=== PATIENT | male | born 1940 | race Caucasian/White ===

== ENCOUNTER 2016-10-19 10:04 | Inpatient (IN) | payer OTHER ==
--- NOTE | 2016-10-19 10:48 | EDPHY ---
H & P Smoking Status: Never smoked Time Seen by Provider: 10/19/16 10:21 HPI/ROS: CHIEF COMPLAINT: Unable to urinate HISTORY OF PRESENT ILLNESS: 75-year-old male presents to the emergency department by private vehicle with his complaining of difficulty urinating. Patient was in [place] 1 week ago and developed hematuria. He was seen at urgent care and was started on antibiotics. He went back to urgent care because he was unable to urinate and then ultimately went to the emergency department in [place] and had a noncontrast CT scan which revealed a mass in his right kidney. The patient was to have further testing although because they were out of state they wanted come back to [place] further care. They saw their primary care doctor yesterday, Dr. Danny East, who recommended that he hold his Plavix. He is scheduled to see Dr. Carrion this afternoon. He denies dysuria, urgency or frequency. His only pain is associated with a flare-up of gout that he has in his right ankle which is not uncommon for him. He was to take prednisone for this. He denies flank pain or abdominal pain. Denies fevers or chills. Denies any reported trauma. Denies chest pain or difficulty breathing. REVIEW OF SYSTEMS: Constitutional: No fever, no chills. Eyes: No double or blurry vision. ENT: No sore throat. Respiratory: No cough, no shortness of breath. Cardiac: No chest pain. Gastrointestinal: No abdominal pain, vomiting or diarrhea. Genitourinary: Difficulty urinating. No dysuria. Musculoskeletal: No neck or back pain. Skin: No rashes. Neurological: No headache. (Amena Vidal) Past Medical/Surgical History: Gout, diagnosed with right kidney mass September 2016 (Amena Vidal) Social History: (Amena Vidal) Physical Exam: General Appearance: Alert, no distress. 133/80, heart rate 83, 97% on room air. Afebrile. at bedside. Eyes: Pupils equal and round. Extraocular motions are all intact. ENT: Mouth: Mucous membranes moist. Respiratory: No wheezing, rhonchi, or rales, lungs are clear to auscultation. Cardiovascular: Regular rate and rhythm. Gastrointestinal: Abdomen is soft and nontender, no masses, no rebound or guarding, bowel sounds normal. No CVA tenderness bilaterally. Neurological: Alert and oriented x 3, cranial nerves II through XII grossly intact Skin: Warm and dry, no rashes. Musculoskeletal: Nontender to palpate along the cervical, thoracic or lumbar spine. Neck is supple. Extremities: Full range of motion. Right ankle is slightly swollen and with mild erythema to the lateral aspect of the right ankle. Normal sensation to light touch with normal 2 point discrimination. Psychiatric: Patient is oriented X 3, there is no agitation. (Amena Vidal) Constitutional: Initial Vital Signs Temperature (C) 36.7 C 10/19/16 10:05 Heart Rate 83 10/19/16 10:05 Respiratory Rate 18 10/19/16 10:05 Blood Pressure 133/80 H 10/19/16 10:05 O2 Sat (%) 97 10/19/16 10:05 O2 Delivery Mode Room Air Allergies/Adverse Reactions: No Known Allergies Allergy (Unverified 10/19/16 10:10) Home Medications: Medication Instructions Recorded Acetaminophen [Tylenol ES 500 mg 1,000 mg PO Q6 PRN 10/19/16 (*)] Atorvastatin Calcium [Atorvastatin 40 mg PO HS 10/19/16 Calcium] Ciprofloxacin [Cipro] 500 mg PO BID 10/19/16 Citric Acid/Sodium Citrate [Sod 15 ml PO DAILY 10/19/16 Citrate-Citric Acid Soln] Clopidogrel Bisulfate [Clopidogrel] 75 mg PO DAILY 10/19/16 Glimepiride [Glimepiride] 6 mg PO BIDPC 10/19/16 Levothyroxine Sodium 88 mcg PO DAILY 10/19/16 [Levothyroxine Sodium] Lisinopril [Lisinopril] 10 mg PO DAILY 10/19/16 Multivitamins [Multivitamin (*)] 1 each PO DAILY 10/19/16 oxyCODONE HCL [Oxycodone HCl] 5 mg PO Q4 PRN 10/19/16 sitaGLIPtin PHOSPHATE [Januvia 25 50 mg PO DAILY 10/19/16 MG (*)] Medical Decision Making ED Course/Re-evaluation: 75-year-old male presents to the emergency department with hematuria and urinary retention. Creatinine is 1.9. BUN 30. Bladder scan was performed which revealed only about 300 mL of urine. The patient has urge to urinate and therefore catheter was placed. A 3 way catheter was not available in the emergency department therefore a single Boone catheter was placed for comfort. The catheter drained about 300 mL of urine that appear bloody. I spoke with Dr. Carrion who recommended that the patient be admitted to the hospitalist and consulted for nephrectomy. The case was discussed with Dr. Rivera Thorpe, secondary supervising physician, who did not directly evaluate the patient but agrees with treatment and plan. After multiple attempts and pages to the on-call urologist, Dr. Morgan Mcgrath, I was finally able to speak with Dr. Mcgrath at 12:[address] Mcgrath recommended changing the Boone catheter to 3 way catheter so it could be irrigated. He also recommended obtaining MRI with contrast. He felt that this was safe with his creatinine 1.9. Patient will be admitted to Dr. Riggs, hospitalist. (Amena Vidal) I did not see this patient while he was in the emergency department. However his care was discussed with the PA while the patient was in the department. I agree with treatment plan and management (Rivera Thorpe) Differential Diagnosis: Including but not limited to carcinoma, renal failure, renal insufficiency, urinary tract infection, pyelonephritis, kidney stone (Amena Vidal) - Data Points Laboratory Results: Laboratory Results 10/19/16 10:55 10/19/16 10:55 10/19/16 10/19/16 10/19/16 11:03 10:55 10:55 WBC RBC Hgb POC Hgb 10.9 gm/dL L gm/dL (14.5-17.3) Hct POC Hct 32 % L % (42.8-50.6) MCV MCH MCHC RDW Plt Count MPV Neut % (Auto) Lymph % (Auto) [place] % (Auto) Eos % (Auto) Baso % (Auto) Nucleat RBC Rel Count Absolute Neuts (auto) Absolute Lymphs (auto) Absolute Monos (auto) Absolute Eos (auto) Absolute Basos (auto) Absolute Nucleated RBC Immature Gran % Immature Gran # PT INR APTT POC Sodium 136 mEq/L mEq/L (134-144) Sodium 133 mEq/L L mEq/L (134-144) POC Potassium 4.0 mEq/L mEq/L (3.3-5.0) Potassium 4.2 mEq/L mEq/L (3.5-5.2) POC Chloride 102 mEq/L mEq/L (96-108) Chloride 103 mEq/L mEq/L (97-110) Carbon Dioxide 19 mEq/l L mEq/l (22-31) Anion Gap 11 mEq/L mEq/L (8-16) POC BUN 30 mg/dL H mg/dL (7-23) BUN 35 mg/dL H mg/dL (7-23) Creatinine 1.9 mg/dL H mg/dL (0.7-1.3) POC Creatinine 1.9 mg/dL H mg/dL (0.8-1.5) Estimated GFR 35 Glucose 234 mg/dL H mg/dL (70-100) POC Glucose 235 mg/dL H mg/dL (70-100) Calcium 8.4 mg/dL L mg/dL (8.5-10.4) Total Bilirubin 0.8 mg/dL mg/dL (0.1-1.4) Conjugated Bilirubin 0.3 mg/dL mg/dL (0.0-0.5) Unconjugated Bilirubin 0.5 mg/dL mg/dL (0.0-1.1) AST 25 IU/L IU/L (17-59) ALT 34 IU/L IU/L (21-72) Alkaline Phosphatase 60 IU/L IU/L (38-126) Total Protein 5.8 g/dL L g/dL (6.3-8.2) Albumin 3.6 g/dL g/dL (3.5-5.0) 10/19/16 10/19/16 10:55 10:55 WBC 10.62 10^3/uL H 10^3/uL (3.80-9.50) RBC 3.53 10^6/uL L 10^6/uL (4.40-6.38) Hgb 11.5 g/dL L g/dL (13.7-17.5) POC Hgb Hct 33.0 % L % (40.0-51.0) POC Hct MCV 93.5 fL fL (81.5-99.8) MCH 32.6 pg pg (27.9-34.1) MCHC 34.8 g/dL g/dL (32.4-36.7) RDW 13.2 % % (11.5-15.2) Plt Count 199 10^3/uL 10^3/uL (150-400) MPV 10.9 fL fL (8.7-11.7) Neut % (Auto) 81.2 % H % (39.3-74.2) Lymph % (Auto) 8.4 % L % (15.0-45.0) [place] % (Auto) 8.7 % % (4.5-13.0) Eos % (Auto) 1.0 % % (0.6-7.6) Baso % (Auto) 0.3 % % (0.3-1.7) Nucleat RBC Rel Count 0.0 % % (0.0-0.2) Absolute Neuts (auto) 8.63 10^3/uL H 10^3/uL (1.70-6.50) Absolute Lymphs (auto) 0.89 10^3/uL L 10^3/uL (1.00-3.00) Absolute Monos (auto) 0.92 10^3/uL H 10^3/uL (0.30-0.80) Absolute Eos (auto) 0.11 10^3/uL 10^3/uL (0.03-0.40) Absolute Basos (auto) 0.03 10^3/uL 10^3/uL (0.02-0.10) Absolute Nucleated RBC 0.00 10^3/uL 10^3/uL (0-0.01) Immature Gran % 0.4 % % (0.0-1.1) Immature Gran # 0.04 10^3/uL 10^3/uL (0.00-0.10) PT 14.6 SEC SEC (12.0-15.0) INR 1.15 (0.83-1.16) APTT 26.2 SEC SEC (23.0-38.0) POC Sodium Sodium POC Potassium Potassium POC Chloride Chloride Carbon Dioxide Anion Gap POC BUN BUN Creatinine POC Creatinine Estimated GFR Glucose POC Glucose Calcium Total Bilirubin Conjugated Bilirubin Unconjugated Bilirubin AST ALT Alkaline Phosphatase Total Protein Albumin Medications Given: Discontinued Medications Hydromorphone HCl (Dilaudid) 1 mg IVP EDNOW ONE Stop: 10/19/16 14:13 Last Admin: 10/19/16 14:25 Dose: 1 mg Sodium Chloride (Ns) 1,000 mls @ 0 mls/hr IV ONCE ONE PRN Reason: Wide Open Stop: 10/19/16 11:50 Last Admin: 10/19/16 11:49 Dose: 1,000 mls Sodium Chloride (Ns) 1,000 mls @ 0 mls/hr IV ONCE ONE PRN Reason: Wide Open Stop: 10/19/16 14:27 Last Admin: 10/19/16 14:29 Dose: 1,000 mls Lidocaine (Uroject Lidocaine 2% Jelly) 20 ml UR EDNOW ONE Stop: 10/19/16 11:50 Last Admin: 10/19/16 11:35 Dose: 20 ml Ondansetron HCl (Zofran) 4 mg IVP EDNOW ONE Stop: 10/19/16 14:12 Last Admin: 10/19/16 14:15 Dose: 4 mg Point of Care Test Results: 10/19/16 11:03 POC Sodium 136 POC Potassium 4.0 POC Chloride 102 POC BUN 30 H POC Creatinine 1.9 H POC Glucose 235 H Departure - Departure Disposition: [facility] Acute Clinical Impression: Hematuria, Renal mass, Urinary retention Condition: Good
[2016-10-19 11:07] LABS: % IMMATURE GRANULYOCYTES 0.4 % (0.0-1.1); ABSOLUTE IMMATURE GRANULOCYTES 0.04 10^3/uL (0.00-0.10); ADD DIFF? NO; ADD MORPH? NO; ADD SCAN? NO; ATYPICAL LYMPHOCYTE FLAG 10 (0-99); FRAGMENT RBC FLAG 0 (0-99); HEMOGLOBIN 11.5 g/dL (13.7-17.5); LEFT SHIFT FLG 0 (0-99); LIPEMIA HEMOLYSIS FLAG 90 (0-99); MEAN CELL HEMOGLOBIN 32.6 pg (27.9-34.1); MEAN CELL HEMOGLOBIN CONCENTR. 34.8 g/dL (32.4-36.7); MEAN CELL VOLUME 93.5 fL (81.5-99.8); MEAN PLATELET VOLUME 10.9 fL (8.7-11.7); PLATELET CLUMPS FLAG 0 (0-99); PLATELET COUNT 199 10^3/uL (150-400); RED BLOOD CELL COUNT 3.53 10^6/uL (4.40-6.38); RED CELL DISTRIBUTION WIDTH 13.2 % (11.5-15.2)
[2016-10-19 11:17] LABS: INR 1.15 (0.83-1.16); PROTIME(PATIENT) 14.6 SEC (12.0-15.0)
[2016-10-19 11:18] LABS: APTT 26.2 SEC (23.0-38.0)
[2016-10-19] MEDS ORDERED: LIDOCAINE 2% JELLY 20 ML (UROJECT) ONE (11:18)
[2016-10-19 11:24] LABS: ANION GAP 11 mEq/L (8-16); CALCIUM 8.4 mg/dL (8.5-10.4); CARBON DIOXIDE 19 mEq/l (22-31); CHLORIDE 103 mEq/L (97-110); CREATININE 1.9 mg/dL (0.7-1.3); GLOMERULAR FILTRATION RATE 35; GLUCOSE 234 mg/dL (70-100); POTASSIUM 4.2 mEq/L (3.5-5.2); SODIUM 133 mEq/L (134-144)
[2016-10-19 11:29] LABS: ALBUMIN 3.6 g/dL (3.5-5.0); BILIRUBIN,TOTAL 0.8 mg/dL (0.1-1.4); BILIRUBIN-CONJUGATED 0.3 mg/dL (0.0-0.5); BILIRUBIN-UNCONJUGATED 0.5 mg/dL (0.0-1.1); TOTAL PROTEIN 5.8 g/dL (6.3-8.2)
[2016-10-19] MEDS ORDERED: LIDOCAINE 2% JELLY 20 ML (UROJECT) UR ONE (11:49)
[2016-10-19] MEDS ORDERED: NS 1,000 ML IV ONE ×2 (11:49→14:26)
[2016-10-19] MEDS ORDERED: ONDANSETRON 4 MG/2 ML VIAL IVP ONE (14:11)
[2016-10-19] MEDS ORDERED: HYDROmorphONE/DILAUDID 1 MG/ML SYR IVP ONE (14:12)
[2016-10-19 15:38] LABS: COLOR AMBER; LEUKOCYTE ESTERASE,URINE NEGATIVE (NEGATIVE); NITRITE,URINE NEGATIVE (NEGATIVE)
[2016-10-19 15:50] LABS: MUCUS TRACE /lpf (NONE-1+); RBC,URINE 50-182 /hpf (0-3)
[2016-10-19] MEDS ORDERED: ONDANSETRON 4 MG/2 ML VIAL IVP PRN (16:44)
[2016-10-19] MEDS ORDERED: ONDANSETRON DISINTEGRATING 4 MG TAB PO PRN (16:44)
[2016-10-19] MEDS ORDERED: ACETAMINOPHEN 650 MG SUPP PR PRN (16:44)
[2016-10-19] MEDS ORDERED: NS 1,000 ML IV SCH (16:45)
--- NOTE | 2016-10-19 16:54 | PDGENHP ---
History and Physical - Chief Complaint urinary retention, hematuria - History of Present Illness This is a 75 yo male who was visiting [place] last week and had hematuria and urinary retention and was hospitalized there. The hematuria and retention improved. CT Abd was c/w a right renal mass of unclear etiology but suspicious for malignancy. The patient had recurrence of the Hematuria with worsening retention and the ultimately led him to seek emergency care today. The patients is a patient of Dr. Carrion and arrangements had been made for the patient to follow up with Dr. Carrion for further management and evaluation of the right renal mass. In the ED, a irrigation bills was placed and he is receiving bladder irrigation. The patient was found to have CONNER with an elevated cr. An MRI of the abd and pelvis has been ordered by Urology and this is pending. He denies any CP, SOB, N/V, palpitations, leg edema, abd pain, or other. He held plavix 2 days ago. PMHX: DMII hx of stroke HLD HYPOTHYROIDISM GOUT HEMATURIA SOC HX: NO TOBACCO, ETOH OR DRUG USE. LIVES IN [place] FMHX: NO HX OF RENAL MALIGNANCY MEDS/ALL: SEE MED REC History Information - Allergies/Home Medication List Allergies/Adverse Reactions: No Known Allergies Allergy (Unverified 10/19/16 10:10) Home Medications: Acetaminophen [Tylenol ES 500 mg (*)] 1,000 mg PO Q6 PRN 10/19/16 [Last Taken ] Atorvastatin Calcium [Atorvastatin Calcium] 40 mg PO HS 10/19/16 [Last Taken ] Ciprofloxacin [Cipro] 500 mg PO BID 10/19/16 [Last Taken 10/18/16] Citric Acid/Sodium Citrate [Sod Citrate-Citric Acid Soln] 15 ml PO DAILY [Last Taken 10/14/16] Clopidogrel Bisulfate [Clopidogrel] 75 mg PO DAILY 10/19/16 [Last Taken 10/18/16 ] Glimepiride [Glimepiride] 6 mg PO BIDPC 10/19/16 [Last Taken Unknown] Levothyroxine Sodium [Levothyroxine Sodium] 88 mcg PO DAILY 10/19/16 [Last Taken 10/19/16] Lisinopril [Lisinopril] 10 mg PO DAILY 10/19/16 [Last Taken 10/19/16] Multivitamins [Multivitamin (*)] 1 each PO DAILY 10/19/16 [Last Taken Unknown] oxyCODONE HCL [Oxycodone HCl] 5 mg PO Q4 PRN 10/19/16 [Last Taken 10/14/16] sitaGLIPtin PHOSPHATE [Januvia 25 MG (*)] 50 mg PO DAILY 10/19/16 [Last Taken ] I have personally reviewed and updated: medical history, social history - Social History Smoking Status: Never smoked Review of Systems ROS: 10pt was reviewed & negative except for what was stated in HPI & below Physical Exam Temp Pulse Resp BP Pulse Ox 36.7 C 97 16 136/73 H 97 10/19/16 15:00 10/19/16 15:00 10/19/16 15:00 10/19/16 15:00 10/19/16 15:00 Constitutional: no apparent distress, appears nourished, No chronically ill appearing Eyes: PERRL, EOMI Ears, Nose, Mouth, Throat: moist mucous membranes, hearing normal Cardiovascular: regular rate and rhythym, no murmur, rub, or gallop, No JVD Respiratory: no respiratory distress, no rales or rhonchi, clear to auscultation Gastrointestinal: normoactive bowel sounds, soft, non-tender abdomen Genitourinary: no bladder fullness Skin: warm, normal color Musculoskeletal: No generalized weakness Neurologic: AAOx3, No weakness, No facial droop Psychiatric: interacting appropriately, not anxious, not encephalopathic Lab Data & Imaging Review 10/19/16 10:55 10/19/16 10:55 WBC 10.62 10^3/uL (3.80-9.50) H 10/19/16 10:55 RBC 3.53 10^6/uL (4.40-6.38) L 10/19/16 10:55 Hgb 11.5 g/dL (13.7-17.5) L 10/19/16 10:55 POC Hgb 10.9 gm/dL (14.5-17.3) L 10/19/16 11:03 Hct 33.0 % (40.0-51.0) L 10/19/16 10:55 POC Hct 32 % (42.8-50.6) L 10/19/16 11:03 MCV 93.5 fL (81.5-99.8) 10/19/16 10:55 MCH 32.6 pg (27.9-34.1) 10/19/16 10:55 MCHC 34.8 g/dL (32.4-36.7) 10/19/16 10:55 RDW 13.2 % (11.5-15.2) 10/19/16 10:55 Plt Count 199 10^3/uL (150-400) 10/19/16 10:55 MPV 10.9 fL (8.7-11.7) 10/19/16 10:55 Neut % (Auto) 81.2 % (39.3-74.2) H 10/19/16 10:55 Lymph % (Auto) 8.4 % (15.0-45.0) L 10/19/16 10:55 [place] % (Auto) 8.7 % (4.5-13.0) 10/19/16 10:55 Eos % (Auto) 1.0 % (0.6-7.6) 10/19/16 10:55 Baso % (Auto) 0.3 % (0.3-1.7) 10/19/16 10:55 Nucleat RBC Rel Count 0.0 % (0.0-0.2) 10/19/16 10:55 Absolute Neuts (auto) 8.63 10^3/uL (1.70-6.50) H 10/19/16 10:55 Absolute Lymphs (auto) 0.89 10^3/uL (1.00-3.00) L 10/19/16 10:55 Absolute Monos (auto) 0.92 10^3/uL (0.30-0.80) H 10/19/16 10:55 Absolute Eos (auto) 0.11 10^3/uL (0.03-0.40) 10/19/16 10:55 Absolute Basos (auto) 0.03 10^3/uL (0.02-0.10) 10/19/16 10:55 Absolute Nucleated RBC 0.00 10^3/uL (0-0.01) 10/19/16 10:55 Immature Gran % 0.4 % (0.0-1.1) 10/19/16 10:55 Immature Gran # 0.04 10^3/uL (0.00-0.10) 10/19/16 10:55 PT 14.6 SEC (12.0-15.0) 10/19/16 10:55 INR 1.15 (0.83-1.16) 10/19/16 10:55 APTT 26.2 SEC (23.0-38.0) 10/19/16 10:55 POC Sodium 136 mEq/L (134-144) 10/19/16 11:03 Sodium 133 mEq/L (134-144) L 10/19/16 10:55 POC Potassium 4.0 mEq/L (3.3-5.0) 10/19/16 11:03 Potassium 4.2 mEq/L (3.5-5.2) 10/19/16 10:55 POC Chloride 102 mEq/L (96-108) 10/19/16 11:03 Chloride 103 mEq/L (97-110) 10/19/16 10:55 Carbon Dioxide 19 mEq/l (22-31) L 10/19/16 10:55 Anion Gap 11 mEq/L (8-16) 10/19/16 10:55 POC BUN 30 mg/dL (7-23) H 10/19/16 11:03 BUN 35 mg/dL (7-23) H 10/19/16 10:55 Creatinine 1.9 mg/dL (0.7-1.3) H 10/19/16 10:55 POC Creatinine 1.9 mg/dL (0.8-1.5) H 10/19/16 11:03 Estimated GFR 35 10/19/16 10:55 Glucose 234 mg/dL (70-100) H 10/19/16 10:55 POC Glucose 235 mg/dL (70-100) H 10/19/16 11:03 Calcium 8.4 mg/dL (8.5-10.4) L 10/19/16 10:55 Total Bilirubin 0.8 mg/dL (0.1-1.4) 10/19/16 10:55 Conjugated Bilirubin 0.3 mg/dL (0.0-0.5) 10/19/16 10:55 Unconjugated Bilirubin 0.5 mg/dL (0.0-1.1) 10/19/16 10:55 AST 25 IU/L (17-59) 10/19/16 10:55 ALT 34 IU/L (21-72) 10/19/16 10:55 Alkaline Phosphatase 60 IU/L (38-126) 10/19/16 10:55 Total Protein 5.8 g/dL (6.3-8.2) L 10/19/16 10:55 Albumin 3.6 g/dL (3.5-5.0) 10/19/16 10:55 Urine Color KELLI 10/19/16 Unknown Urine Appearance MODERATELY TURBID 10/19/16 Unknown Urine pH 6.0 (5.0-7.5) 10/19/16 Unknown Ur Specific [place] 1.010 (1.002-1.030) 10/19/16 Unknown Urine Protein 2+ (NEGATIVE) H 10/19/16 Unknown Urine Ketones NEGATIVE (NEGATIVE) 10/19/16 Unknown Urine Blood 3+ (NEGATIVE) H 10/19/16 Unknown Urine Nitrate NEGATIVE (NEGATIVE) 10/19/16 Unknown Urine Bilirubin NEGATIVE (NEGATIVE) 10/19/16 Unknown Urine Urobilinogen NEGATIVE EU (0.2-1.0) 10/19/16 Unknown Ur Leukocyte Esterase NEGATIVE (NEGATIVE) 10/19/16 Unknown Urine RBC 50-182 /hpf (0-3) H 10/19/16 Unknown Urine WBC 1-3 /hpf (0-3) 10/19/16 Unknown Ur Epithelial Cells TRACE /lpf (NONE-1+) 10/19/16 Unknown Urine Mucus TRACE /lpf (NONE-1+) 10/19/16 Unknown Urine Glucose 1+ (NEGATIVE) H 10/19/16 Unknown Assessment & Plan Assessment: Hematuria (Acute) Renal mass (Acute) Urinary retention (Acute) Plan: #urinary retention, hematuria. -cont bladder irrigation -Urology to see -Hold Plavix #Right renal mass of unclear Etiology -MRI abd/pelvis pending -Urology -Oncology #Acute Renal failure -likely postobstructive -cont bills -will check urine studies -provide additional IVF today #DMII and Hyperglycemia -hold oral meds -start ISS #HTN: -hold Lisinopril #Recent UTI, s/p Cipro #Hx of Stroke -Holding Plavix Dispo/Plan: -admit observation -await MRI -continue home meds as appropriate -SDS's -Full code total care time spent on admission is 1 hour
[2016-10-19] MEDS ORDERED: D50W 25 GM/50 ML SYR IVP PRN (17:00)
[2016-10-19] MEDS: INSULIN LISPRO 100 UNIT/ML SC SCH (17:36)
[2016-10-19] MEDS: oxyCODONE IR 5 MG TAB PO PRN ×2 (17:39→21:39)
--- NOTE | 2016-10-19 19:53 | SOAPPROG ---
SOAP Progress Note Assessment/Plan: Assessment: 1. Gross hematuria w/ clot retention. 2. Possible right renal mass. 3. h/o prostate cancer. Plan: 1. Continue CBI. 2. Hydrate vigorously. 3. MRI tomorrow to further assess for right renal mass. See full dictated consult note (# [id number]). Objective: Vital Signs Temp Pulse Resp BP Pulse Ox 36.4 C 92 16 93/50 L 90 L 10/19/16 19:24 10/19/16 19:24 10/19/16 19:24 10/19/16 19:24 10/19/16 19:24 10/18/16 10/19/16 10/20/16 05:59 05:59 05:59 Intake Total 2550 Output Total 4200 Balance -1650 PT 14.6 SEC (12.0-15.0) 10/19/16 10:55 INR 1.15 (0.83-1.16) 10/19/16 10:55 ICD10 Worksheet Patient Problems: Problems Problem Status Onset Hematuria Acute Renal mass Acute Urinary retention Acute
[2016-10-19] MEDS: ATORVASTATIN CALCIUM 40 MG TAB PO SCH (20:12)
--- NOTE | 2016-10-19 20:30 | GCON ---
[f rep st] CONSULTATION UROLOGY CONSULTATION. REASON FOR CONSULTATION: Gross hematuria, possible right renal mass. HISTORY: This is a 75-year-old gentleman, who started experiencing gross hematuria about 9 days ago . The hematuria was occasionally bright to dark red in color. It occurred throughout the voiding s tream. He presented to an urgent care clinic within 48 hours of hematuria onset and was in [place], [place] at that time. Apparently no abnormalities were identified and no evidence of infection was detected. The patient was then discharged. However, the hematuria recurred and was associated with a clot retention. As a result, he presented to an emergency room in the [facility]. A noncontrast CT scan was performed at that time which revealed a possible right renal mass. T he patient was admitted for observation but received no other significant management at that time, p er his recollection. The bleeding eventually stopped and the patient was deemed ready for discharge from the [facility] on last week. He then flew home last Tuesday and was doing wel l until he developed the recurrence of gross hematuria with clot retention yesterday evening. He pr esented to the emergency room earlier today as a result. He was admitted for further care thereafte r, including continuous bladder irrigation. The patient states he had some transient nausea with in itial onset of clot retention 1 week ago, along with some very transient mild, dull right lower quad rant abdominal pain. Both the nausea and the pain have long since resolved. He denies any associat ed fevers, flu-like symptoms, flank pain, dysuria, or changes in his otherwise normal voiding patter n. He does state that he had 1 solitary episode of bright red gross painless hematuria approximatel y 2 months ago but did not receive any evaluation for it at that time. PAST MEDICAL HISTORY: In addition to noted gross hematuria above and possible right renal mass, sig nificant for type 2 diabetes, gout, history of prostate cancer, hypothyroidism, history of possible left partial retinal occlusion approximately 5 years ago. PAST SURGICAL HISTORY: Prostate brachytherapy approximately 10 years ago. ADMISSION MEDICATIONS: Cipro 500 mg b.i.d. (started for possible UTI), atorvastatin 40 mg daily, ox ycodone 5 mg p.r.n. pain, lisinopril 10 mg daily, levothyroxine 88 mcg daily, glimepiride 6 mg b.i.d ., Auguvia 50 mg daily, Plavix 75 mg daily. MEDICAL ALLERGIES: None known. FAMILY HISTORY: Positive for prostate cancer in his brother and kidney stones in his father and bro ther. SOCIAL HISTORY: The patient is to [place] and lives in the [place] area. He denies use of to bacco products and consumes alcohol minimally. He also denies use of illicit drugs. He and his wif e were vacationing in [place], [place] last week when his symptoms presented. REVIEW OF SYSTEMS: He has had some recent right ankle and foot swelling related to gout outbreak fo r which he was started on prednisone by Dr. East yesterday. Otherwise, negative, other than menti oned above in the HPI and past medical history. PHYSICAL EXAM: GENERAL: Pleasant, well-developed, well-nourished white male, lying supine in bed, in no acute distress. He does experience occasional mild bladder spasms that are very transient. V ITAL SIGNS: Blood pressure 93/50, pulse 92, respirations 16, oxygen saturation 90% on 1 L nasal can nula. Temperature 36.4 Celsius. HEENT: Normocephalic, atraumatic. NECK: Supple. HEART: Regula r rate. CHEST: Unlabored respiratory pattern. ABDOMEN: Soft without palpable masses. No obvious organomegaly. No flank tenderness on percussion. GENITALIA: Circumcised phallus with normal uret hral meatus in proper position. Boone catheter in place. Currently draining slightly blood-tinged urine on continuous irrigation. Scrotal structures are normal. EXTREMITIES: Warm, with some swell ing of the right ankle and foot as result of his recent gout attack. Otherwise unremarkable. No ca lf tenderness. VASCULAR: Normal femoral, dorsalis pedis, and posterior tibial pulses bilaterally. NEUROLOGIC: He is alert and oriented. He answers all questions appropriately with normal mood and affect. LYMPHATICS: No cervical or inguinal adenopathy appreciated. LABORATORY: Chemistry panel from this morning reveals creatinine 1.9, normal electrolytes otherwise . Liver function tests are normal. Glucose is elevated at 125 this afternoon, compared to 235 at 1 1:00 a.m. Coagulation parameters today are normal. CBC today is notable for hemoglobin 11.5, hemat ocrit 33.0. Urinalysis notable for 50-182 red blood cells per high-power field but otherwise unrema rkable. From review of the patient's prior hospital records, it appears that his baseline creatinin e is approximately 1.5 from April 2016. RADIOGRAPHIC STUDIES: None performed here to this point. However, noncontrast CT scan report from 10/13 in [place] indicates the presence of a possible 5 cm right renal mass with some mixed densities in the renal collecting system and proximal ureter, suggestive for a blood clot. No stones were id entified. IMPRESSION: 1. Recurrent gross hematuria with clot urinary retention. 2. Possible small 5 cm right renal mass with secondary hematuria. 3. History of prostate cancer. 4. Acute on chronic renal disease. I had an extended discussion with the patient, his and son this evening regarding his recent cl inical history and the CT scan report provided from [place]. Differential diagnosis for these findi ngs, as well as his gross hematuria and clot retention, were reviewed in detail today. All question s were answered to their apparent satisfaction. PLAN: 1. Maintain continuous bladder irrigation for the present time. The most likely source for his hem aturia is the right renal mass although other etiologies will need to be ruled out. 2. I agree with holding of Plavix which was just started yesterday upon Dr. East's recommendation . Considering the half-life of Plavix, he will still be at increased risk for recurrent urinary tra ct bleeding for at least the next 7 days while the Plavix clears. 3. Repeat lab work in the morning. 4. Proceed with abdominal MRI with and without contrast tomorrow to further delineate the extent of a right renal mass. I believe this will be safer in terms of his elevated creatinine in comparison to CT related IV contrast dye. I will continue to follow. Thank you for this consultation. /[id number]/MODL
[2016-10-19] MEDS: NS 1,000 ML IV SCH (21:39)
[2016-10-20] MEDS: NS 1,000 ML IV SCH ×3 (02:44→23:59)
[2016-10-20] MEDS: LEVOTHYROXINE 88 MCG TAB PO SCH (05:58)
[2016-10-20 06:36] LABS: % IMMATURE GRANULYOCYTES 0.4 % (0.0-1.1); ABSOLUTE IMMATURE GRANULOCYTES 0.04 10^3/uL (0.00-0.10); ADD DIFF? NO; ADD MORPH? NO; ADD SCAN? NO; ATYPICAL LYMPHOCYTE FLAG 10 (0-99); FRAGMENT RBC FLAG 0 (0-99); HEMATOCRIT 30.9 % (40.0-51.0); HEMOGLOBIN 10.7 g/dL (13.7-17.5); LEFT SHIFT FLG 0 (0-99); LIPEMIA HEMOLYSIS FLAG 90 (0-99); MEAN CELL HEMOGLOBIN 32.6 pg (27.9-34.1); MEAN CELL HEMOGLOBIN CONCENTR. 34.6 g/dL (32.4-36.7); MEAN CELL VOLUME 94.2 fL (81.5-99.8); PLATELET CLUMPS FLAG 0 (0-99); PLATELET COUNT 184 10^3/uL (150-400); RED BLOOD CELL COUNT 3.28 10^6/uL (4.40-6.38); RED CELL DISTRIBUTION WIDTH 13.3 % (11.5-15.2)
[2016-10-20 07:02] LABS: ANION GAP 10 mEq/L (8-16); CALCIUM 7.7 mg/dL (8.5-10.4); CARBON DIOXIDE 19 mEq/l (22-31); CHLORIDE 109 mEq/L (97-110); CREATININE 1.7 mg/dL (0.7-1.3); GLOMERULAR FILTRATION RATE 39; GLUCOSE 175 mg/dL (70-100); MAGNESIUM 1.9 mg/dL (1.6-2.3); SODIUM 138 mEq/L (134-144)
[2016-10-20 07:18] LABS: POTASSIUM 4.5 mEq/L (3.5-5.2)
[2016-10-20] MEDS: INSULIN LISPRO 100 UNIT/ML SC SCH ×3 (07:53→19:12)
[2016-10-20] MEDS: ACETAMINOPHEN 325 MG TAB PO PRN ×3 (08:09→21:27)
[2016-10-20 09:56] LABS: HEMOGLOBIN A1C 7.4 % (4.0-6.0)
--- NOTE | 2016-10-20 15:47 | HOSPPROG ---
Hospitalist Progress Note Assessment/Plan: #urinary retention, hematuria. -Etiology is unclear. Possibly from Right renal mass -Off bladder irrigation. Has not urinated as of 1529. Will continue to monitor but may need bills -Urology is following -Holding Plavix #Right renal mass of unclear Etiology -MRI abd/pelvis pending -Urology following #Acute Renal failure -likely postobstructive, urine studies are not back yet. Will need to be followed. -May require re-insertion of bills per above -provide additional IVF today. Tolerating IVF well, no signs of volume overload #DMII and Hyperglycemia -hold oral meds -start ISS -glucose overall with good control here -A1C: 7.4 #HTN: -hold Lisinopril #Recent UTI, s/p Cipro #Hx of Stroke vs retinal occlusion -Holding Plavix -SDS's -Full code Dispo: Monitor overnight. Await MRI. Subjective: Bills is out. No urine output as of yet. Objective: Vital Signs Temp Pulse Resp BP Pulse Ox 36.8 C 82 16 118/63 92 10/20/16 15:41 10/20/16 15:41 10/20/16 15:41 10/20/16 15:41 10/20/16 15:41 Laboratory Results 10/20/16 05:08 10/20/16 05:08 10/19/16 10/20/16 10/21/16 05:59 05:59 05:59 Intake Total 4410 Output Total 4200 4025 Balance 210 -4025 PT 14.6 SEC (12.0-15.0) 10/19/16 10:55 INR 1.15 (0.83-1.16) 10/19/16 10:55 - Physical Exam Constitutional: no apparent distress, appears nourished, not in pain Eyes: PERRL, anicteric sclera, EOMI Ears, Nose, Mouth, Throat: moist mucous membranes, hearing normal, ears appear normal Cardiovascular: regular rate and rhythym, No JVD Respiratory: no respiratory distress, no rales or rhonchi, clear to auscultation Gastrointestinal: normoactive bowel sounds, soft, non-tender abdomen Skin: warm, normal color Neurologic: AAOx3 Psychiatric: interacting appropriately, not anxious, not encephalopathic ICD10 Worksheet Patient Problems: Problems Problem Status Onset Hematuria Acute Renal mass Acute Urinary retention Acute
[2016-10-20] MEDS ORDERED: GADOBUTROL 10 ML VIAL IVP ONE (16:45)
[2016-10-20] MEDS: ATORVASTATIN CALCIUM 40 MG TAB PO SCH (19:57)
--- NOTE | 2016-10-20 21:54 | SOAPPROG ---
SOAP Progress Note Assessment/Plan: Assessment: 1. Gross hematuria w/ clot retention: improved. Voiding since Boone removal. 2. Possible right renal mass. 3. h/o prostate cancer. Plan: 1. Continue to hydrate vigorously in light of today's MRI contrast administration. 2. MRI completed this evening to further assess for right renal mass. Will review results w/ pt. on . 3. I presume he should be ready for discharge after MRI review on . Subjective: Pt. not seen. Objective: Vital Signs Temp Pulse Resp BP Pulse Ox 36.8 C 97 18 138/81 H 97 10/20/16 19:54 10/20/16 20:07 10/20/16 20:07 10/20/16 20:07 10/20/16 20:07 10/19/16 10/20/16 10/21/16 05:59 05:59 05:59 Intake Total 2000 Output Total 200 Balance 1800 PT 14.6 SEC (12.0-15.0) 10/19/16 10:55 INR 1.15 (0.83-1.16) 10/19/16 10:55 ICD10 Worksheet Patient Problems: Problems Problem Status Onset Hematuria Acute Renal mass Acute Urinary retention Acute
[2016-10-21 06:04] LABS: CARBON DIOXIDE 20 mEq/l (22-31); CREATININE 1.4 mg/dL (0.7-1.3); GLOMERULAR FILTRATION RATE 49; GLUCOSE 151 mg/dL (70-100)
[2016-10-21 06:13] LABS: ANION GAP 7 mEq/L (8-16); CALCIUM 7.6 mg/dL (8.5-10.4); CHLORIDE 112 mEq/L (97-110); POTASSIUM 4.2 mEq/L (3.5-5.2); SODIUM 139 mEq/L (134-144)
[2016-10-21] MEDS: LEVOTHYROXINE 88 MCG TAB PO SCH (06:23)
[2016-10-21 07:52] VITALS: BP 116/69; PULSE 65; RESP 16; TEMP 98.2; O2SAT 97
[2016-10-21] MEDS: INSULIN LISPRO 100 UNIT/ML SC SCH ×2 (08:03→11:47)
[2016-10-21] MEDS: ACETAMINOPHEN 325 MG TAB PO PRN (10:26)
--- NOTE | 2016-10-21 13:54 | SOAPPROG ---
MICHELLE Progress Note Assessment/Plan: Assessment: 1. Gross hematuria w/ clot retention: improved. Voiding adequately since Boone removal. 2. ~ 6.5 right renal mass per MRI, but unclear whether it is renal cell or urothelial cell CA. 3. h/o prostate cancer. Plan: 1. Okay to discharge home. 2. He will need to stay off Plavix (or any other anticoagulant) until his kidney is removed. 3. To help delineate the type of tumor, I will arrange for him to undergo intraoperative diagnostic right ureteroscopy/nephroscopy w/in the next 2 weeks, to be soon followed by radical nephrectomy (or nephroureterectomy). 4. I have also recommended outpatient nephrology consultation, as he is sure to have more significant chronic kidney disease following nephrectomy. I have provided him the name and phone number for [facility] and he will call to arrange an initial consultation. All of the above have been discussed in detail w/ the pt. and his family today, and all questions were answered. I have also reviewed his case w/ Drs. Shetty and Cruzito. 10/21/16 14:00 Subjective: No complaints. Voiding well w/ some some periodcially dark-looking blood. Objective: Vital Signs Temp Pulse Resp BP Pulse Ox 36.8 C 65 16 116/69 97 10/21/16 07:50 10/21/16 07:50 10/21/16 07:50 10/21/16 07:50 10/21/16 07:50 Laboratory Results 10/21/16 04:59 10/20/16 10/21/16 10/22/16 05:59 05:59 05:59 Intake Total 3125 1309 Output Total 875 700 Balance 2250 609 PT 14.6 SEC (12.0-15.0) 10/19/16 10:55 INR 1.15 (0.83-1.16) 10/19/16 10:55 - Time Spent With Patient Time Spent With Patient: 55 mins. Physical Exam - Physical Exam General Appearance: WD/WN, alert, no apparent distress Neuro/Psych: alert, normal mood/affect, oriented x 3 ICD10 Worksheet Patient Problems: Problems Problem Status Onset Hematuria Acute Renal mass Acute Urinary retention Acute
--- NOTE | 2016-10-21 14:22 | HOSPPROG ---
Hospitalist Progress Note Assessment/Plan: 75 yo m w hematuria, renal mass renal mass: outpt workup scheduled hematuria: improved urinary retention: resolved CKD: cr at baseline dmL continue meds retinal artery occlusion: presumed, remote will need to hold plavix given upcoming procedures discussed need to seek care emergently if focal neurologic sx dispo: home today > 30 minutes on dc Subjective: case d/w dr kelly. outpt workup planned. ready for dc Objective: Vital Signs Temp Pulse Resp BP Pulse Ox 36.8 C 65 16 116/69 97 10/21/16 07:50 10/21/16 07:50 10/21/16 07:50 10/21/16 07:50 10/21/16 07:50 Laboratory Results 10/21/16 04:59 10/20/16 10/21/16 10/22/16 05:59 05:59 05:59 Intake Total 3125 1309 Output Total 875 700 Balance 2250 609 PT 14.6 SEC (12.0-15.0) 10/19/16 10:55 INR 1.15 (0.83-1.16) 10/19/16 10:55 - Physical Exam Constitutional: no apparent distress, not in pain Eyes: PERRL, anicteric sclera Ears, Nose, Mouth, Throat: moist mucous membranes, hearing normal Cardiovascular: regular rate and rhythym, no murmur, rub, or gallop Respiratory: no respiratory distress, no rales or rhonchi Gastrointestinal: normoactive bowel sounds, soft, non-tender abdomen Genitourinary: no bladder fullness, No bills in urethra Skin: warm, normal color Musculoskeletal: full muscle strength, no muscle tenderness Neurologic: AAOx3, sensation intact bilaterally Psychiatric: interacting appropriately, not anxious Lymph, Heme, Immunologic: no cervical LAD ICD10 Worksheet Patient Problems: Problems Problem Status Onset Hematuria Acute Renal mass Acute Urinary retention Acute
--- NOTE | 2016-10-21 14:49 | GDS ---
[f rep st] DISCHARGE SUMMARY DISCHARGE DIAGNOSES: 1. Hematuria with urinary obstruction, now resolved. 2. 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 3. Diabetes. 4. Remote retinal artery occlusion. 5. Gout. HOSPITAL COURSE: Please see admission history and physical by Dr. Maicol Riggs. Patient en casey with hematuria and urinary obstruction. He did not require a 3-way Boone. He had a CAT scan pe rformed at a hospital in [place] during a recent admission which showed possible right renal mass, a nd he had an MRI which confirmed this. Regarding the mass, he has been seen by Dr. Mcgrath who will graciously resume an outpatient workup i ncluding ureteroscopy and nephrectomy versus nephrectomy with ureteral resection as well. He has chronic kidney disease. The baseline creatinine is about 1.5, and it is 1.4 on the day of di scharge. He is advised to hold his Plavix. He was instructed to seek care for any focal neurologic symptoms. DISCHARGE STATUS: To home. /[id number]/MODL
== END 2016-10-21 15:10 | disposition home or self-care (01) | DRG 696 ==
LOC: F1N 14:45 → OBSVTOIN 10-20 15:49
PROVIDERS: ADMIT Family Medicine; ATTEND Internal Medicine
DX: R33.9 Retention of urine, unspecified (principal); C64.1 Malignant neoplasm of right kidney, except renal pelvis; N17.9 Acute kidney failure, unspecified; R31.9 Hematuria, unspecified; M10.9 Gout, unspecified; E11.65 Type 2 diabetes mellitus with hyperglycemia; E78.5 Hyperlipidemia, unspecified; E03.9 Hypothyroidism, unspecified; N18.9 Chronic kidney disease, unspecified; I12.9 Hypertensive chronic kidney disease with stage 1 through stage 4 chronic kidney disease, or unspecified chronic kidney disease; Z86.73 Personal history of transient ischemic attack (TIA), and cerebral infarction without residual deficits; Z79.02 Long term (current) use of antithrombotics/antiplatelets
CPT/HCPCS: 82947-QW; 96374; A9585; G0378; J1170; J1815; J2405

== ENCOUNTER 2016-11-18 06:39 | Inpatient (IN) | payer OTHER ==
[~2016-11-18 06:39] MED LIST: ceFAZolin 2 GM/DEXTROSE 100 ML IV ONE
[2016-11-18] MEDS ORDERED: LIDOCAINE 1% 5 ML SDV ID PRN ×2 (07:00→07:37)
[2016-11-18] MEDS ORDERED: LR 1,000 ML IV ONE ×2 (07:00→07:37)
[2016-11-18] MEDS ORDERED: LIDOCAINE 1% 2 ML INJ ONE (07:07)
[2016-11-18 07:34] LABS: % IMMATURE GRANULYOCYTES 0.3 % (0.0-1.1); ABSOLUTE IMMATURE GRANULOCYTES 0.02 10^3/uL (0.00-0.10); ADD DIFF? NO; ADD MORPH? NO; ADD SCAN? NO; ATYPICAL LYMPHOCYTE FLAG 20 (0-99); FRAGMENT RBC FLAG 0 (0-99); HEMATOCRIT 36.5 % (40.0-51.0); HEMOGLOBIN 12.4 g/dL (13.7-17.5); LEFT SHIFT FLG 0 (0-99); LIPEMIA HEMOLYSIS FLAG 90 (0-99); MEAN CELL HEMOGLOBIN 31.9 pg (27.9-34.1); MEAN CELL VOLUME 93.8 fL (81.5-99.8); MEAN PLATELET VOLUME 11.1 fL (8.7-11.7); PLATELET CLUMPS FLAG 0 (0-99); PLATELET COUNT 197 10^3/uL (150-400); RED BLOOD CELL COUNT 3.89 10^6/uL (4.40-6.38); RED CELL DISTRIBUTION WIDTH 13.9 % (11.5-15.2)
[2016-11-18] MEDS ORDERED: DEXAMETHASONE 4 MG/ML VIAL ONE (07:54)
[2016-11-18] MEDS ORDERED: LIDOCAINE 2% 5 ML SDV ONE ×2 (07:54→08:08)
[2016-11-18] MEDS ORDERED: ROCURONIUM 100 MG/10 ML VIAL ONE (07:54)
[2016-11-18] MEDS ORDERED: PROPOFOL 200 MG/20 ML VIAL ONE (07:55)
[2016-11-18] MEDS ORDERED: fentaNYL 100 MCG/2 ML INJ ONE ×3 (07:55→10:59)
[2016-11-18] MEDS ORDERED: epHEDrine SULFATE 10 MG/ML SYR ONE ×2 (08:33→09:24)
[2016-11-18] MEDS ORDERED: BUPIVACAINE/EPI 0.25% 30 ML SDV ONE (09:19)
[2016-11-18] MEDS ORDERED: GLYCOPYRROLATE 0.2 MG/1 ML VIAL ONE (09:26)
[2016-11-18] MEDS ORDERED: SUGAMMADEX SODIUM 200 MG/2 ML VIAL IVP ONE ×2 (09:55)
[2016-11-18] MEDS ORDERED: ONDANSETRON 4 MG/2 ML VIAL ONE (09:55)
[2016-11-18] MEDS ORDERED: THROMBIN(HUM PLAS)/FIBRINOG/CA 5 ML VIAL TP ONE (10:23)
[2016-11-18] MEDS ORDERED: SUGAMMADEX SODIUM 500 MG/5 ML VIAL IVP ONE (10:56)
--- NOTE | 2016-11-18 11:06 | POSTOPPROG ---
Post Op Note Date of Operation: 11/18/16 Surgeon: Guerline Mcgrath (# [id number]) Harbor Engineer: CHRISTELLE Swain Anesthesia: GET(General Endotracheal) Pre-op Diagnosis: Right renal mass, right ureteral stent Post-op Diagnosis: Right renal mass, right ureteral stent Procedure: 1. Cysto w/ right stent removal 2. Robotic right radical nephrectomy Findings: See op note Inf/Abcess present in the surg proc area at time of surgery?: No EBL: Minimal (20 cc) Complications: None Specimen(s): Right kidney and proximal ureter
[2016-11-18] MEDS ORDERED: ONDANSETRON 4 MG/2 ML VIAL IVP PRN (11:58)
[2016-11-18] MEDS ORDERED: HYDROmorphONE/DILAUDID 6 MG/30 ML PCA IV PRN (11:58)
[2016-11-18] MEDS ORDERED: NALOXONE HCL 0.4 MG/ML INJ IVP PRN (11:58)
[2016-11-18] MEDS ORDERED: 1/2 NS 1,000 ML IV SCH (12:00)
--- NOTE | 2016-11-18 12:36 | GOP ---
[f rep st] OPERATIVE REPORT DATE OF OPERATION: 11/18/2016 SURGEON: Guerline Mcgrath MD LABORATORY DIRECTOR: CHRISTELLE Swain ANESTHESIA: General endotracheal. PREOPERATIVE DIAGNOSIS: 1. Abnormal right renal mass. 2. Retained right ureteral stent. POSTOPERATIVE DIAGNOSIS: 1. Abnormal right renal mass. 2. Retained right ureteral stent. PROCEDURE PERFORMED: 1. Cystourethroscopy with right ureteral stent removal. 2. Robotically-assisted laparoscopic right radical nephrectomy and partial ureterectomy. FINDINGS: No gross extrarenal cancer extension appreciated. SPECIMENS: Right kidney and proximal ureter. ESTIMATED BLOOD LOSS: Approximately 20 cc. INDICATIONS: This gentleman was recently identified to have a sizable right renal mass that is concerning for malignancy. The patient has previously undergone right-sided ureteroscopy and nephroscopy, which ruled out the presence of an intraurothelial tumor. The patient underwent right ureteral stent placement at that time. He presents for definitive operative management of his tumor. The indications for the procedures, as well as potential risks and complications, were discussed with the patient preoperatively. He appeared to understand, his questions were answered, and he wished to proceed. Written informed surgical consent was thereafter obtained. DESCRIPTION OF PROCEDURE: The patient was brought to the operating room and administered general endotracheal anesthesia. The genital area was sterilely prepped and draped in standard fashion. Flexible cystoscopy was used to remove the indwelling right ureteral stent with grasping forceps. This was accomplished without complication. The cystoscope was removed and a 16-Danish Boone catheter placed to gravity drainage. The patient was then transferred to the operating room table. An orogastric tube was placed by Anesthesia and removed at the conclusion of the case. The patient was placed in the right flank-up position with a triangular pad behind his back. He was propped up about 45 degrees at this point. The left leg was flexed at the knee while the right leg was kept straight over the left leg with pillows placed between them. All appropriate pressure points were securely padded. The patient's left arm was kept abducted less than 90 degrees on an arm board, while the right arm was kept in a foam trough along his right side in a neutral position. The table was flexed approximately 20 degrees. The patient was then thoroughly secured to the table with several strips of wide cloth tape from head to toe. The table was then airplaned back and forth to ensure patient stability on the table , and this was confirmed. The patient's abdomen was then sterilely prepped and draped in standard fashion utilizing Ioban. A 12 mm laparoscopic port was placed on the patient's right side, about residential between the xiphoid and umbilicus, just to the right of midline. Intraabdominal insufflation was performed with a Veress needle to an intraabdominal pressure of 15 mmHg, which was the pressure maintained throughout the majority of the case. A 12 mm laparoscopic port was placed at this location and the 12 mm zero-degree robotic camera was used to confirm proper intraabdominal positioning. The remaining ports were placed as follows: An 8 mm robotic port in the lower aspect of the right upper quadrant, another 8 mm port in the upper aspect of the right upper quadrant, just below the costal margin in the midclavicular line, a 5 mm port placed to the right of midline just below the xiphoid (to be used for liver retraction), and a 15 mm port placed in the midline just below the umbilicus. All these ports were placed under direct vision without complication. The patient was then turned into a 90 degrees right flank-up position. The robot was then docked and brought in perpendicular to the patient's back, while keeping the robotic camera port in line with the camera laparoscopic port. The 12 mm zero-degree lens was used throughout the remainder of the case. The appropriate robotic arms were secured to the respective ports. I then left the patient's bedside and entered the surgeon's robotic console. I began the robotic portion of the procedure by mobilizing the right colon off the lateral abdominal wall and reflecting it medially across the midline in order to expose the vena cava. The underlying duodenum was also exposed and carefully Kocherized with cold scissors dissection. The liver was dissected from the attached peritoneum sharply with monopolar scissors and reflected in a cephalad fashion. The liver and the gallbladder were kept in a reflected position using a ratcheted grasper through the 5 mm port. The ureter was then identified caudal to the kidney. Dissection was performed down to the psoas fascia at this location. The ureter and gonadal vein were then pulled up anteriorly in order to continue my medial dissection along the lateral edge of the vena cava toward the renal hilum. I was ultimately able to identify the renal hilum. A window was created above the hilum and the 60 mm linear vascular stapler used to ligate the hilum successfully. The adrenal gland was spared. Hepatorenal attachments were ligated with the linear vascular stapler. The perineum was carefully teased off the underlying Gerota's fascia without complication. I dissected the remaining posterior and lateral attachments to Gerota's fascia which were sharply divided. The ureter was ligated caudal to the kidney with the linear vascular stapler. The kidney was completely free at this point and later placed in a 15 mm specimen bag. The renal hilum was carefully inspected, as was the underside of the liver. There was a very small liver capsular tear where the peritoneum had been adherent to the liver. This was hemostatic even with intraabdominal pressure turned down to 5 mmHg. Nonetheless, Evicel was placed at this location along with Surgicel. There were no other potential areas of bleeding identified. After the specimen was captured within the bag, this completed the robotic portion of the procedure. The intestinal contents, as well as the liver and gallbladder were otherwise unharmed from the operative procedure. I then returned to the patient's bedside. The 12 mm camera port anterior fascia was reapproximated with a fascial closure device and an 0 Vicryl suture. The lower midline port site was extended with scalpel and electrocautery in order to deliver the specimen bag that contained the kidney. This wound was irrigated thoroughly. The anterior rectus fascia at this location was reapproximated with a running 0 Vicryl suture. The subcutaneous tissue was cauterized for hemostatic purposes. A total of 30 cc of 0.5% Marcaine with epinephrine was used for local anesthesia at all the incision sites. All the skin edges were then reapproximated with running 4-0 Monocryl suture in a subcuticular fashion. The wounds were dressed with Dermabond. The patient was then awakened, extubated, transferred to his bed, then taken to the recovery room. He tolerated the procedure well overall. COMPLICATIONS: None. DISPOSITION: He was transferred to the recovery room in stable condition. He will be admitted for postoperative care. Copy requested to: Dr. Ravi East /[id number]/MODL MTDD
[2016-11-18] MEDS ORDERED: D50W 25 GM/50 ML SYR IVP PRN (17:17)
[2016-11-18] MEDS ORDERED: PARAMETERS MISC PRN (17:17)
--- NOTE | 2016-11-18 17:18 | PDGENHP ---
History and Physical History and Physical: HISTORY AND PHYSICAL CC: Asked by Dr. Lisandro Mcgrath to assess and assist in the care of Mr. Sims who is in after nephrectomy today and is diabetic HISTORY: This patient had recent onset of gross hematuria with presence of a right renal mass. An internal stent was placed and he eventually came in today for nephrectomy for removal of this right renal mass. This was done with robotic assistance earlier today by Dr. Neves without complications. Fortunately is sounds like there was no gross evidence of extra renal malignancy at the time of surgery. I am seeing the patient now back in his hospital room after recovery. He says he has abdominal wall pain when he tries to sit up but otherwise feels quite comfortable. There is no nausea and he is eating some Jell-O and juice at this moment. Does not have shortness of breath, chest pain, nausea, headache, neurologic symptoms, palpitations, fever symptoms. The patient has had 1 prior surgery and no problems with anesthesia from that surgery. Recently he has had no symptoms of a cardiac, pulmonary, neurologic, or hematologic nature. He has no previous history of DVT or PE. There is a prior history of stroke. No history of heart or lung disease. ROS: A comprehensive 10 system review revealed no other significant findings PAST MEDICAL HISTORY: CVA Type 2 diabetes times 10 years Hypothyroidism on replacement Retinal artery occlusion Gout Right renal artery mass FAMILY MEDICAL HISTORY: No malignancy SOCIAL HISTORY: No tobacco alcohol or drugs He is and his is here at the bedside with the now. She is his surrogate decision maker if necessary MEDICATIONS: The patients list has been reconciled by our clinical pharmacist in the EMR and I have reviewed the list. Some of his home medicines have been held at this time including his oral hypoglycemics. I think that is reasonable at least until we have follow-up renal function and see how he does eating and drinking. PHYSICAL EXAMINATION: Vital Signs: Stable without fever at this time Examination: General: alert, oriented, good mentation, relaxed Skin: warm, dry, good color, no rash HEENT: normal Neck: no mass or jvd Resps: relaxed Lungs: clear breath sounds Heart: regular, no murmur Abdomen: soft, nondistended, mildly tender Upper Extremities: normal Lower Extremities: no edema, warm No Bleeding or bruising Neurologic: normal speech/language, normal personal lines appraiser, no focal weakness IV site: looks normal LABORATORY DATA: Initial blood sugar before surgery was at 89, postop EF fingerstick a few hours ago at 238 CBC unremarkable ASSESSMENT: 1- right renal mass, presumed malignancy, status post right nephrectomy 2- history of gross hematuria most likely caused by this mass 3- type 2 diabetes mellitus on oral medications at home, without evidence of diabetic complications at this time 4- hypothyroidism on replacement therapy 5- Prior history of stroke PLANS: -will order fingersticks for glucose monitoring. His goals right now will be to try and keep his blood sugar somewhere in the 150-180 range or thereabouts avoiding both hyper and hypoglycemia of significance. He does not have a history of symptomatic low sugars so far. Will start by using some sliding scale short-acting insulin until we see what his follow-up renal function is and how well he is eating and keeping his foods in. -will insure that his adequate hydration, using IV as needed -encourage ambulation -medications have not been ordered for DVT prophylaxis. Would review this with Dr. Mcgrath the morning. If the patient is going to remain hospitalized, from internal medicine standpoint this would be recommended. Sequential compression stockings have been ordered I have reviewed the patient's past medical records as part of this assessment, including previous hospital admission notes and labs
[2016-11-18] MEDS ORDERED: INSULIN REGULAR HUMAN 100 UNIT/ML SC SCH (17:30)
[2016-11-18] MEDS: INSULIN LISPRO 100 UNIT/ML SC SCH ×2 (17:33→21:55)
[2016-11-18] MEDS: NS 1,000 ML IV SCH (18:40)
[2016-11-19] MEDS: NS 1,000 ML IV SCH (05:18)
[2016-11-19 05:19] LABS: HEMATOCRIT 31.9 % (40.0-51.0); HEMOGLOBIN 10.6 g/dL (13.7-17.5); MEAN CELL HEMOGLOBIN 31.5 pg (27.9-34.1); MEAN CELL HEMOGLOBIN CONCENTR. 33.2 g/dL (32.4-36.7); MEAN CELL VOLUME 94.7 fL (81.5-99.8); RED BLOOD CELL COUNT 3.37 10^6/uL (4.40-6.38); RED CELL DISTRIBUTION WIDTH 13.8 % (11.5-15.2)
[2016-11-19 05:28] LABS: ANION GAP 8 mEq/L (8-16); CALCIUM 7.9 mg/dL (8.5-10.4); CARBON DIOXIDE 22 mEq/l (22-31); CHLORIDE 108 mEq/L (97-110); CREATININE 1.7 mg/dL (0.7-1.3); GLOMERULAR FILTRATION RATE 39; GLUCOSE 127 mg/dL (70-100); POTASSIUM 4.5 mEq/L (3.5-5.2); SODIUM 138 mEq/L (134-144)
[2016-11-19] MEDS ORDERED: NS 1,000 ML IV SCH (07:00)
[2016-11-19] MEDS: LEVOTHYROXINE 88 MCG TAB PO SCH (08:18)
[2016-11-19] MEDS: INSULIN LISPRO 100 UNIT/ML SC SCH ×4 (08:19→21:10)
--- NOTE | 2016-11-19 12:00 | HOSPPROG ---
Hospitalist Progress Note Assessment/Plan: #Controlled DM: good control with SSI, will cont to hold Metformin #Acute pain: minimal WELLNESS AMBASSADOR use, will transition to low-dose PO #Right renal mass: suspected malignancy. POD #1 nephrectomy #CKD: Cr 1.7 today, which is at baseline #Hematuria: due to renal mass #Normocytic anemia: H/H stable #Diet: clear #DVT ppx: SCDs Please call if questions Subjective: pain in abd with movement Objective: Vital Signs Temp Pulse Resp BP Pulse Ox 36.6 C 83 16 138/70 H 95 11/19/16 11:46 11/19/16 11:46 11/19/16 11:46 11/19/16 11:46 11/19/16 11:46 Laboratory Results 11/19/16 04:42 11/19/16 04:42 11/18/16 11/19/16 11/20/16 05:59 05:59 05:59 Intake Total 3375 Output Total 870 350 Balance 2505 -350 - Physical Exam Constitutional: no apparent distress Eyes: PERRL Ears, Nose, Mouth, Throat: moist mucous membranes, hearing normal Cardiovascular: regular rate and rhythym, no murmur, rub, or gallop Respiratory: no respiratory distress, no rales or rhonchi Gastrointestinal: normoactive bowel sounds, tenderness (mild upper abdomen) Skin: warm Musculoskeletal: full muscle strength Neurologic: AAOx3, CN II-XII Intact Psychiatric: interacting appropriately ICD10 Worksheet Patient Problems: Problems Problem Status Onset Hematuria Acute Renal mass Acute Urinary retention Acute
[2016-11-19] MEDS ORDERED: oxyCODONE IR 5 MG TAB PO PRN (12:44)
[2016-11-19] MEDS ORDERED: HYDROmorphONE/DILAUDID 1 MG/ML SYR IVP PRN (12:45)
--- NOTE | 2016-11-19 17:59 | SOAPPROG ---
SOAP Progress Note Assessment/Plan: Assessment: POD 1 s/p robotic right radical nephrectomy - doing well. Appreciate hospitalist's assistance. Plan: 1. Continue to work on ambulation. 2. Advance to carb-controlled diet in AM. Will switch to oral narcotics & d/ c EVENT MARKETING INTERN at that time. 3. Path. pending. Subjective: No complaints. Only up in chair thus far. No N/V with CLD. No flatus. Objective: Vital Signs Temp Pulse Resp BP Pulse Ox 36.7 C 52 L 16 131/57 H 92 11/19/16 16:00 11/19/16 16:00 11/19/16 16:00 11/19/16 16:00 11/19/16 16:00 Laboratory Results 11/19/16 04:42 11/19/16 04:42 11/18/16 11/19/16 11/20/16 05:59 05:59 05:59 Intake Total 3375 2250 Output Total 870 700 Balance 2505 1550 Physical Exam - Physical Exam General Appearance: WD/WN, alert, no apparent distress Abdomen: soft, other (mild tenderness around lower midline incision; incisions c /d/i) Skin: normal color, warm/dry Extremities: non-tender, normal inspection Neuro/Psych: alert, normal mood/affect, oriented x 3 ICD10 Worksheet Patient Problems: Problems Problem Status Onset Hematuria Acute Renal mass Acute Urinary retention Acute
[2016-11-19] MEDS ORDERED: HYDROmorphONE/DILAUDID 6 MG/30 ML PCA IV PRN (18:00)
[2016-11-19] MEDS ORDERED: NALOXONE HCL 0.4 MG/ML INJ IVP PRN (18:00)
[2016-11-19] MEDS ORDERED: ZOLPIDEM TARTRATE 5 MG TAB PO PRN (18:01)
[2016-11-20] MEDS ORDERED: ACETAMINOPHEN 325 MG TAB PO PRN (00:09)
[2016-11-20] MEDS ORDERED: oxyCODONE IR 5 MG TAB PO PRN (00:09)
[2016-11-20 05:36] LABS: HEMATOCRIT 33.1 % (40.0-51.0); HEMOGLOBIN 11.2 g/dL (13.7-17.5); MEAN CELL HEMOGLOBIN 31.9 pg (27.9-34.1); MEAN CELL HEMOGLOBIN CONCENTR. 33.8 g/dL (32.4-36.7); MEAN CELL VOLUME 94.3 fL (81.5-99.8); RED BLOOD CELL COUNT 3.51 10^6/uL (4.40-6.38); RED CELL DISTRIBUTION WIDTH 13.9 % (11.5-15.2)
[2016-11-20 05:57] LABS: ANION GAP 8 mEq/L (8-16); CALCIUM 8.1 mg/dL (8.5-10.4); CARBON DIOXIDE 22 mEq/l (22-31); CHLORIDE 107 mEq/L (97-110); CREATININE 1.8 mg/dL (0.7-1.3); GLOMERULAR FILTRATION RATE 37; GLUCOSE 178 mg/dL (70-100); SODIUM 137 mEq/L (134-144)
[2016-11-20] MEDS ORDERED: HYDROCODONE/APAP 10/325 TAB PO PRN (08:00)
--- NOTE | 2016-11-20 08:23 | HOSPPROG ---
Hospitalist Progress Note Assessment/Plan: #Controlled DM: good control with SSI. Restart home PO meds. Changed dose of glimiperide to 2mg PO BID given CKD. Had lengthy conversation with he and family with changes. Changes reflected in his DC orders #Acute pain: minimal TECHNICAL AGRONOMIST use, will transition to low-dose PO #Right renal mass: suspected malignancy. POD #2 right radical nephrectomy #CKD: Cr 1.8 today, which is at baseline #Hematuria: due to renal mass #Normocytic anemia: H/H stable #Diet: diabetic #DVT ppx: SCDs Please call if questions. Subjective: no pain today Objective: Vital Signs Temp Pulse Resp BP Pulse Ox 37.2 C 81 15 133/66 H 93 11/20/16 05:55 11/20/16 05:55 11/20/16 05:55 11/20/16 05:55 11/20/16 05:55 Laboratory Results 11/20/16 04:56 11/20/16 04:56 11/19/16 11/20/16 11/21/16 05:59 05:59 05:59 Intake Total 3375 2600 Output Total 870 1225 150 Balance 2505 1375 -150 - Physical Exam Constitutional: no apparent distress Eyes: PERRL Ears, Nose, Mouth, Throat: moist mucous membranes Cardiovascular: regular rate and rhythym, no murmur, rub, or gallop Respiratory: no respiratory distress Gastrointestinal: normoactive bowel sounds, soft, non-tender abdomen Skin: warm Musculoskeletal: full muscle strength Neurologic: AAOx3 Psychiatric: interacting appropriately ICD10 Worksheet Patient Problems: Problems Problem Status Onset Hematuria Acute Renal mass Acute Urinary retention Acute
[2016-11-20] MEDS: LEVOTHYROXINE 88 MCG TAB PO SCH (08:46)
[2016-11-20] MEDS: INSULIN LISPRO 100 UNIT/ML SC SCH ×4 (08:46→22:00)
[2016-11-20] MEDS ORDERED: GLIMEPIRIDE 2 MG TAB PO SCH ×2 (11:00→12:00)
--- NOTE | 2016-11-20 12:05 | SOAPPROG ---
SOAP Progress Note Assessment/Plan: Assessment: Diarrhea Acute noted today and C. Diff ordered Hematuria Acute Renal mass Acute Path pending Urinary retention Acute Plan: assess diarrhea, consider DC in AM at pt request 11/20/16 12:02 Subjective: wants to stay additional day due to diarrhea and lack of PO intake Objective: Vital Signs Temp Pulse Resp BP Pulse Ox 36.6 C 93 16 102/63 92 11/20/16 11:47 11/20/16 11:47 11/20/16 11:47 11/20/16 11:47 11/20/16 11:47 Laboratory Results 11/20/16 04:56 11/20/16 04:56 11/19/16 11/20/16 11/21/16 05:59 05:59 05:59 Intake Total 3375 2600 Output Total 870 1225 150 Balance 2505 1375 -150 Physical Exam - Physical Exam General Appearance: alert Neck: full range of motion Respiratory: No respiratory distress (inspirometer to >1500) Neuro/Psych: alert, oriented x 3 ICD10 Worksheet Patient Problems: Problems Problem Status Onset Diarrhea Acute Hematuria Acute Renal mass Acute Urinary retention Acute - ICD10 Problem Qualifiers (1) Diarrhea Qualifiers: Diarrhea type: D
[2016-11-20] MEDS: MULTIVITAMINS 1 EACH TAB PO SCH (12:20)
[2016-11-20] MEDS: OMEGA-3 FATTY ACIDS 1,000 MG CAP PO SCH (12:22)
[2016-11-20] MEDS ORDERED: ATORVASTATIN CALCIUM 40 MG TAB PO SCH (21:00)
[2016-11-20] MEDS: GLIMEPIRIDE 2 MG TAB PO SCH (21:56)
[2016-11-21 05:35] LABS: ANION GAP 6 mEq/L (8-16); CALCIUM 8.5 mg/dL (8.5-10.4); CARBON DIOXIDE 19 mEq/l (22-31); CHLORIDE 111 mEq/L (97-110); CREATININE 1.7 mg/dL (0.7-1.3); GLOMERULAR FILTRATION RATE 39; GLUCOSE 129 mg/dL (70-100); POTASSIUM 3.4 mEq/L (3.5-5.2); SODIUM 136 mEq/L (134-144)
[2016-11-21] MEDS: MULTIVITAMINS 1 EACH TAB PO SCH (09:00)
[2016-11-21] MEDS: LEVOTHYROXINE 88 MCG TAB PO SCH (09:00)
[2016-11-21] MEDS: OMEGA-3 FATTY ACIDS 1,000 MG CAP PO SCH (09:00)
[2016-11-21] MEDS: GLIMEPIRIDE 2 MG TAB PO SCH (09:00)
[2016-11-21] MEDS: INSULIN LISPRO 100 UNIT/ML SC SCH ×2 (09:04→12:32)
--- NOTE | 2016-11-21 09:22 | HOSPPROG ---
Hospitalist Progress Note Assessment/Plan: #Controlled DM: good control with SSI. Changed dose of glimiperide to 2mg PO BID given CKD. Had lengthy conversation with he and family with changes. Changes reflected in his DC orders #Diarrhea: due to abx. C diff negative #Acute pain: minimal [employer] use, will transition to low-dose PO #Right renal mass: suspected malignancy. POD #2 right radical nephrectomy #CKD: Cr 1.8 today, which is at baseline #Hematuria: due to renal mass #Normocytic anemia: H/H stable #Diet: diabetic #DVT ppx: SCDs Will sign off, please call if questions Subjective: no acute events Objective: Vital Signs Temp Pulse Resp BP Pulse Ox 36.7 C 70 16 122/68 H 94 11/21/16 08:00 11/21/16 08:00 11/21/16 08:00 11/21/16 08:00 11/21/16 08:00 Laboratory Results 11/20/16 04:56 11/21/16 04:48 11/20/16 11/21/16 11/22/16 05:59 05:59 05:59 Intake Total 2600 1500 Output Total 1225 700 Balance 1375 800 - Physical Exam Constitutional: no apparent distress Eyes: PERRL Ears, Nose, Mouth, Throat: moist mucous membranes Cardiovascular: regular rate and rhythym Respiratory: no respiratory distress Gastrointestinal: normoactive bowel sounds Skin: normal color Musculoskeletal: full muscle strength Neurologic: AAOx3 ICD10 Worksheet Patient Problems: Problems Problem Status Onset Diarrhea Acute Hematuria Acute Renal mass Acute Urinary retention Acute
[2016-11-21] MEDS ORDERED: POTASSIUM CL 20 MEQ/15 ML UDCUP PO SCH (10:30)
[2016-11-21 14:34] VITALS: BP 102/71; PULSE 83; RESP 18; TEMP 98.3; O2SAT 96
--- NOTE | 2016-11-25 14:45 | SOAPPROG ---
SOAP Progress Note Assessment/Plan: D/C summ. # [id number] Objective: Vital Signs Temp Pulse Resp BP Pulse Ox 36.8 C 83 18 102/71 96 11/21/16 14:30 11/21/16 14:30 11/21/16 14:30 11/21/16 14:30 11/21/16 14:30 Laboratory Results 11/20/16 04:56 11/21/16 04:48 ICD10 Worksheet Patient Problems: Problems Problem Status Onset Diarrhea Acute Hematuria Acute Renal mass Acute Urinary retention Acute
--- NOTE | 2016-11-25 15:03 | GDS ---
[f rep st] DISCHARGE SUMMARY ADMITTING DIAGNOSIS: Right renal mass. 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 NAME OF PROCEDURE: Robotically-assisted laparoscopic right radical nephrectomy and partial ureterectomy on 11/18/2016. HOSPITAL COURSE: Refer to the operative report for details regarding the procedure. Postoperatively, the patient did very well. He was started on a clear liquid diet the morning after surgery, and this was gradually advanced to a diabetic diet without complication. His vital signs were stable, and he was afebrile during the postoperative period. His incisions were clean, dry, and intact. His physical exam was otherwise unremarkable. He was ambulating by postoperative day 1. A hospitalist consult was obtained to assist with management of his diabetes postoperatively. Postoperative laboratory work was stable. His pathology ultimately revealed a clear cell renal cell carcinoma. The patient was deemed ready for discharge on postoperative day 3. He is being discharged on a low-carbohydrate diet and activity restrictions as outlined to the patient. He will continue with his pre-admission medications, with the exception of glimepiride which was changed to 2 mg p.o. twice daily (in light of his chronic kidney disease). The patient is otherwise to continue on his regular baseline medications and was also given a prescription for [place] p.r.n. pain. He has been instructed to return to my office in approximately 3 weeks. /[id number]/MODL MTDD
== END 2016-11-21 14:59 | disposition home or self-care (01) | DRG 658 ==
LOC: F1N 06:39
PROVIDERS: ADMIT Specialist; ATTEND Specialist
DX: C64.1 Malignant neoplasm of right kidney, except renal pelvis (principal); I12.9 Hypertensive chronic kidney disease with stage 1 through stage 4 chronic kidney disease, or unspecified chronic kidney disease; N18.9 Chronic kidney disease, unspecified; E11.22 Type 2 diabetes mellitus with diabetic chronic kidney disease; E03.9 Hypothyroidism, unspecified; M10.9 Gout, unspecified; Z86.73 Personal history of transient ischemic attack (TIA), and cerebral infarction without residual deficits
CPT/HCPCS: 97116-GP; 97161-GP; 97530-GP; G8978-GP-CI; G8979-GP-CH; J0690; J1100; J1170; J1815; J2405; J2704; J3010

== ENCOUNTER → 2017-04-14 | Outpatient (CLI) | payer OTHER ==
[~2017-04-14] MED LIST changes: +IOPAMIDOL (ISOVUE-300) 100 ML BTL ONE; -ceFAZolin 2 GM/DEXTROSE 100 ML IV ONE
== END ==
LOC: FIMAGING 09:42
PROVIDERS: ATTEND Specialist
DX: C61 Malignant neoplasm of prostate (principal); N28.1 Cyst of kidney, acquired; I70.0 Atherosclerosis of aorta; Z98.890 Other specified postprocedural states; Z85.528 Personal history of other malignant neoplasm of kidney
CPT/HCPCS: 74176; Q9967

== ENCOUNTER → 2017-08-24 | Outpatient (CLI) | payer OTHER | LOC: FIMAGING 10:56 | PROVIDERS: ATTEND Internal Medicine Nephrology | DX: N18.4 Chronic kidney disease, stage 4 (severe) (principal); N28.1 Cyst of kidney, acquired; Z90.5 Acquired absence of kidney ==

== ENCOUNTER → 2018-04-17 | Outpatient (CLI) | payer OTHER | LOC: FIMAGING 12:00 | PROVIDERS: ATTEND Specialist | DX: Z12.2 Encounter for screening for malignant neoplasm of respiratory organs (principal); C64.1 Malignant neoplasm of right kidney, except renal pelvis ==

== ENCOUNTER → 2018-04-20 | Outpatient (CLI) | payer OTHER | LOC: FIMAGING 11:37 | PROVIDERS: ATTEND Specialist | DX: C64.1 Malignant neoplasm of right kidney, except renal pelvis (principal); I89.0 Lymphedema, not elsewhere classified ==